=== PATIENT | male | born 1980 | race Caucasian/White ===

== ENCOUNTER 2017-12-23 13:25 | Inpatient (IN) | payer SELFPAY ==
[~2017-12-23] VITALS: Ht 170.2 cm; Wt 92.5 kg
[2017-12-23] MEDS ORDERED: ONDANSETRON HCL 4MG/2ML INJ IV STA (15:31)
[2017-12-23] MEDS ORDERED: KETOROLAC 30MG/ML VIAL IV STA (15:31)
[2017-12-23] MEDS ORDERED: MORPHINE SULFATE 4 MG/ML CPJ (NOT FOR IM USE) IV STA (15:31)
[2017-12-23] MEDS ORDERED: SODIUM CHLORIDE 0.9% 1000ML BAG (SEPSIS BOLUS) IV ONE (15:45)
[2017-12-23] MEDS ORDERED: CEFTRIAXONE 2 G PREMIX 50 ML IV ONE (15:45)
[2017-12-23 16:30] LABS: HEMATOCRIT. 39.2 % (42.0-52.0); HEMOGLOBIN. 13.6 g/dL (14.0-18.0); MEAN CORPUSCULAR HEMOGLOBIN 30.1 pg (28.0-32.0); MEAN CORPUSCULAR VOLUME 86.6 fL (80.0-94.0); MEAN PLATELET VOLUME 8.4 fl (7.4-10.4); PLATELET 188 x1000/uL (130-400); RED BLOOD CELL COUNT 4.53 mill/uL (4.7-6.1); RED CELL DISTRIBUTION WIDTH 12.9 % (11.6-14.6)
[2017-12-23 16:31] LABS: CLARITY URINE CLEAR (CLEAR); COLOR URINE YELLOW (YELLOW); KETONES URINE NEGATIVE (NEGATIVE); LEUKOCYTE ESTERASE URINE 2+ (NEGATIVE); NITRITE URINE NEGATIVE (NEGATIVE); OCCULT BLOOD URINE 1+ (NEGATIVE); PH URINE 8.5 (4.5-8.0); PROTEIN URINE 1+ (NEGATIVE); SPECIFIC GRAVITY URINE 1.025 (1.005-1.030)
[2017-12-23 16:36] LABS: INR 1.1; PARTIAL THROMBOPLASTIN TIME 29.9 sec (23.4-31.0); PROTHROMBIN TIME 11.2 sec (9.1-11.1)
[2017-12-23 16:38] LABS: CHLORIDE 101 mEq/L (98-107)
[2017-12-23 16:55] LABS: PLATELET ESTIMATE NORMAL
[2017-12-23] MEDS ORDERED: DIPHENHYDRAMINE 50MG/ML VIAL IV PRN (18:00)
[2017-12-23] MEDS ORDERED: LORAZEPAM 2MG/ML CPJ IV PRN (18:00)
[2017-12-23] MEDS ORDERED: NA PHOS,M-B/NA PHOS,DI-BA ENEMA 118ML PR PRN (18:00)
[2017-12-23] MEDS ORDERED: HYDROCODONE/APAP 7.5/325MG 1 TAB TABLET PO PRN (18:00)
[2017-12-23] MEDS ORDERED: MORPHINE SULFATE 4 MG/ML CPJ (NOT FOR IM USE) IV PRN (18:00)
[2017-12-23] MEDS ORDERED: MAGNESIUM/ALUMINUM HYDROXIDE/SIMETHICONE 30ML UDC PO PRN (18:00)
[2017-12-23] MEDS ORDERED: GUAIFENESIN 200MG/10ML SUGAR FREE UDC PO PRN (18:00)
[2017-12-23] MEDS ORDERED: ACETAMINOPHEN 325MG TABLET PO PRN (18:00)
[2017-12-23] MEDS ORDERED: ONDANSETRON HCL 4MG/2ML INJ IV PRN (18:00)
[2017-12-23] MEDS ORDERED: DOCUSATE SODIUM 100MG CAPSULE PO PRN (18:00)
[2017-12-23] MEDS ORDERED: CLONIDINE 0.1MG TABLET PO PRN (18:00)
[2017-12-23] MEDS ORDERED: IPRATROPIUM/ALBUTEROL 0.5-3(2.5)MG/3ML NEB INH PRN (18:00)
[2017-12-23 21:00] VITALS: BP 117/76
[2017-12-23 21:30] VITALS: BP 117/76
[2017-12-23] MEDS: SODIUM CHLORIDE 0.9% 1,000 ML IV SCH (21:46)
[2017-12-24] VITALS: BP 111/58
[2017-12-24 04:00] VITALS: BP 105/58
[2017-12-24 07:41] LABS: BASOPHILS % 0.1 % (0.0-2.0); EOSINOPHILS % 0.1 % (0.0-5.0); HEMATOCRIT. 36.8 % (42.0-52.0); HEMOGLOBIN. 12.9 g/dL (14.0-18.0); LYMPHOCYTES % 10.4 % (20.0-50.0); MEAN CORPUSCULAR HEMOGLOBIN 30.4 pg (28.0-32.0); MEAN CORPUSCULAR VOLUME 87.1 fL (80.0-94.0); MEAN PLATELET VOLUME 8.3 fl (7.4-10.4); MONOCYTES % 8.1 % (2.0-8.0); NEUTROPHILS % 81.3 % (40.0-76.0); PLATELET 175 x1000/uL (130-400); RED BLOOD CELL COUNT 4.23 mill/uL (4.7-6.1)
[2017-12-24 08:00] VITALS: BP 108/63
[2017-12-24 08:53] LABS: CHLORIDE 103 mEq/L (98-107)
[2017-12-24] MEDS: SODIUM CHLORIDE 0.9% 1,000 ML IV SCH ×2 (11:23→17:21)
[2017-12-24 12:00] VITALS: BP 115/60
[2017-12-24 16:00] VITALS: BP 118/64
[2017-12-24] MEDS ORDERED: CEFTRIAXONE 1 G PREMIX 50 ML IV SCH (16:00)
[2017-12-24 20:00] VITALS: BP 120/85
[2017-12-25] VITALS: BP 112/75
[2017-12-25 04:00] VITALS: BP 115/67
[2017-12-25] MEDS: SODIUM CHLORIDE 0.9% 1,000 ML IV SCH ×2 (06:05→13:13)
[2017-12-25 08:00] VITALS: BP 116/63
[2017-12-25 09:30] LABS: CHLORIDE 104 mEq/L (98-107)
[2017-12-25 13:45] VITALS: BP 120/69
== END 2017-12-25 16:33 | disposition home or self-care (01) | DRG 720 ==
LOC: ER 13:25 → 6EST 17:14 → EDBEDREQTM 17:18 → EDBEDREQ 17:18 → ENRESERV 20:01
PROVIDERS: ADMIT Internal Medicine; ATTEND Internal Medicine
DX: A41.9 Sepsis, unspecified organism (principal); N39.0 Urinary tract infection, site not specified
CPT/HCPCS: 36415; 74176; 80048; 83605; 84145; 87077; 87186; 96374; 99285; J0696; J1885; J2270; J2405; J7030

== ENCOUNTER 2019-02-09 16:23 | Emergency (ER) | payer SELFPAY ==
[~2019-02-09] VITALS: Ht 167.6 cm; Wt 76.0 kg
[2019-02-09] MEDS ORDERED: KETOROLAC 60MG/2ML VIAL IM ONE (19:15)
[2019-02-09 19:30] LABS: CLARITY URINE CLOUDY (CLEAR); COLOR URINE YELLOW (YELLOW); KETONES URINE NEGATIVE (NEGATIVE); LEUKOCYTE ESTERASE URINE 2+ (NEGATIVE); NITRITE URINE NEGATIVE (NEGATIVE); OCCULT BLOOD URINE 1+ (NEGATIVE); PH URINE 6.5 (4.5-8.0); PROTEIN URINE 2+ (NEGATIVE); SPECIFIC GRAVITY URINE 1.022 (1.005-1.030)
[2019-02-09 20:19] VITALS: BP 140/88
== END 2019-02-09 20:23 | disposition home or self-care (01) ==
LOC: ER 16:23
DX: N39.0 Urinary tract infection, site not specified (principal)
CPT/HCPCS: 81003; 87077; 87086; 87186; 96372; 99283; J1885

== ENCOUNTER 2019-06-10 15:32 | Emergency (ER) | payer MEDICAID ==
[~2019-06-10] VITALS: Ht 172.7 cm; Wt 98.0 kg
[2019-06-10 19:01] LABS: CLARITY URINE TURBID (CLEAR); COLOR URINE YELLOW (YELLOW); KETONES URINE NEGATIVE (NEGATIVE); LEUKOCYTE ESTERASE URINE 3+ (NEGATIVE); NITRITE URINE POSITIVE (NEGATIVE); OCCULT BLOOD URINE 2+ (NEGATIVE); PROTEIN URINE 1+ (NEGATIVE); SPECIFIC GRAVITY URINE 1.019 (1.005-1.030); UROBILINOGEN URINE 0.2 E.U./dL (0.2-1.0)
[2019-06-10] MEDS ORDERED: KETOROLAC 30MG/ML VIAL IM ONE (19:45)
[2019-06-10 19:58] VITALS: BP 138/85
== END 2019-06-10 19:59 | disposition home or self-care (01) ==
LOC: ER 15:42
DX: N39.0 Urinary tract infection, site not specified (principal)
CPT/HCPCS: 81003; 87077; 87086; 87186; 96372; 99283; J1885